=== PATIENT | male | born 2000 | race Hispanic/Latino ===

== ENCOUNTER 2023-11-12 19:01 | Emergency (ER) | payer BC, MEDICAID, OTHER ==
[~2023-11-12] VITALS: Ht 180.3 cm; Wt 75.7 kg
[2023-11-12] MEDS ORDERED: KETOROLAC 30MG VIAL (30MG/ML) IVP ONE (19:30)
[2023-11-12] MEDS ORDERED: MORPHINE 4 MG SYG IVP ONE (19:30)
[2023-11-12] MEDS ORDERED: ONDANSETRON 4MG INJ IVP ONE (19:30)
[2023-11-12 19:57] LABS: BASOPHILS # (AUTO) 0.03 K/uL (0.00-0.20); BASOPHILS % (AUTO) 0.4 % (0.0-5.0); EOSINOPHILS # (AUTO) 0.08 K/uL (0.00-0.70); EOSINOPHILS % (AUTO) 1.1 % (0.0-8.0); HEMATOCRIT 41.1 % (42-54); IMMATURE GRANULOCYTE ABSOLUTE 0.01 K/uL (0-1); LYMPHOCYTES # (AUTO) 1.1 K/uL (1.0-4.8); LYMPHOCYTES % (AUTO) 13.9 % (21.0-51.0); MEAN CORPUSCULAR HEMOGLOBIN 31.1 pg (27.0-33.0); MEAN CORPUSCULAR HGB CONC 35.3 g/dL (32.0-36.0); MEAN CORPUSCULAR VOLUME 88.2 fL (79-99); MONOCYTES # (AUTO) 0.7 K/uL (0.1-1.0); MONOCYTES % (AUTO) 9.3 % (3.0-13.0); NEUTROPHILS # (AUTO) 5.7 K/uL (1.8-7.7); NEUTROPHILS % (AUTO) 75.2 % (40.0-77.0); PLATELET COUNT (AUTO) 179 K/uL (130-400); RED BLOOD CELL COUNT(AUTO) 4.66 MIL/uL (4.50-6.20); RED CELL DISTRIBUTION WIDTH 12.9 % (11.0-15.5); WHITE BLOOD COUNT (AUTO) 7.6 K/uL (4.8-10.8)
[2023-11-12 20:08] LABS: CREATININE 1.1 mg/dL (0.5-1.3); POTASSIUM 3.1 mmol/L (3.5-5.1)
[2023-11-12 20:13] LABS: BILIRUBIN,TOTAL 1.4 mg/dL (0.2-1.0)
[2023-11-12] MEDS ORDERED: IBUP-2077 PO (20:13)
[2023-11-12] MEDS: CEFTRIAXONE 1G VIAL IM ONE (20:26)
[2023-11-12] MEDS: IBUPROFEN 800 MG TAB PO ONE (20:27)
[2023-11-12 20:34] VITALS: BP 119/71; PULSE 72; RESP 14; O2SAT 98
== END 2023-11-12 20:35 | disposition home or self-care (01) ==
LOC: EDH 19:01
DX: L02.01 Cutaneous abscess of face (principal); H66.41 Suppurative otitis media, unspecified, right ear; Z98.890 Other specified postprocedural states
CPT/HCPCS: 99284; 80053; 85025; 87040 ×2; 83605; 36415; 76536; 96372; J0696